=== PATIENT | female | born 1965 | race Asian ===

== ENCOUNTER 2025-08-31 20:12 | Emergency (ER) | payer BC, SELFPAY ==
[2025-08-31 20:16] VITALS: BP 160/95
[2025-08-31 21:13] VITALS: BMI 28.4
[2025-08-31] MEDS: TORADOL 15 MG IV (21:17)
[2025-08-31 21:18] VITALS: BP 149/95
--- NOTE | 2025-08-31 21:19 | ED.GENMED ---
History of Present Illness
General
Chief Complaint: Blood Pressure Problem
Time Seen by Provider: 08/31/25 20:31
History of Present Illness
History of Present Illness:
59-year-old female with past medical history of seizures, not on seizure medications, presenting to the emergency department for concern of high blood pressure. Patient reports that she fell asleep around 1 PM and then at 5 PM when she woke up she
felt unwell. Noted headache and tingling to her hands. She checked her sugar because she is prediabetic it was 120. She then checked her blood pressure which was 140/95, which concerned her because her pressure usually runs lower. Also notes
some chest pressure, denies any known cardiac history. Denies abdominal pain or GI symptoms. Denies fever. Denies additional he medical complaints.
Phy Exam
Physical Exam
Physical Exam:
General: Well-appearing, no clinical signs of dehydration, nontoxic and in no acute distress
HEENT: protecting airway
Neck: appears supple
CV: Normal heart rate, regular rhythm
Resp: No accessory muscle use, no increased work of breathing, lungs clear to auscultation bilaterally
Abd: No distention
Extremities: No deformities, no swelling
Neuro: alert, no focal neurologic deficit
: deferred
Rectal: deferred
Psych: Normal affect
Skin: Intact
Course
Orders/Labs/Results
Orders:
Orders
08/31/25 20:14
ECG [Electrocardiogram (*1)] Urgent
Reason for Study: Chest Pain
Cardiology Consult: Unknown
EKG- Treatment ONCE
08/31/25 21:04
Ketorolac [Toradol] 15 mg IV NOW STA
08/31/25 21:12
Comprehensive Metabolic Panel Urgent
Troponin I Urgent
08/31/25 21:13
Complete Blood Count/With Diff Urgent
08/31/25 22:26
EKG- Treatment ONCE
09/01/25 00:10
Electrocardiogram (*1) Urgent
Reason for Study: Chest Pain
09/01/25 00:12
Troponin I Urgent
Abnormal Lab Results
08/31/25 08/31/25
21:12 21:13
WBC 4.6 L 10^3/uL
(4.8-10.8)
Glucose 103 H mg/dl
(70-99)
ALT 37 H U/L
(0-35)
08/31/25 21:13
08/31/25 21:12
Vital Signs
Initial and Last Documented VS:
Initial Vital Signs
Temp Pulse Resp BP Pulse Ox
97.8 F 90 16 160/95 98
08/31/25 20:16 08/31/25 20:16 08/31/25 20:16 08/31/25 20:16 08/31/25 20:16
Last Documented Vital Signs
Temp Pulse Resp BP Pulse Ox
97.8 F 56 13 119/78 100
08/31/25 20:16 09/01/25 00:15 09/01/25 00:15 09/01/25 00:00 09/01/25 00:15
MDM/Problems Addressed
MDM/Problems Addressed:
59-year-old female with history of seizures presenting for concern of high blood pressure. Vital signs on arrival significant for mild hypertension, however improved without intervention.
On exam patient is resting comfortably, no acute distress. Again blood pressure is minimally elevated. Without present concern for hypertensive urgency or emergency. Notes mild headache, no focal neurologic deficits on exam without concern for
central neurologic process or CVA. EKG obtained on arrival, noted some chest pressure, no acute evidence of ischemia. Without present concern for ACS. Will screen with laboratory analysis to ensure no evidence of end organ dysfunction. Will
continue to monitor blood pressure.
22:30 - Labs are unremarkable. Troponin is detectable, however within normal limits. Given patient's chest pressure, will repeat.
00:50 - Second troponin within normal limits. Blood pressure remained stable. Ultimately feel stable for discharge with close outpatient PCP follow-up for blood pressure recheck. Return precautions discussed and patient verbalized understanding
*Pulse Oximetry
SaO2: 97
Oxygen Mode of Delivery: Room air
Patient hypoxic: no
*EKG
Interpreted by ED Provider?: Yes
EKG Intrepretation Date: 08/31/25
EKG Intrepretation Time: 21:28
Interpretation: normal
Heart Rate: 79
Rate: normal
Rhythm: sinus
[place]: normal axis
Interval: normal interval
QRS Pattern: normal QRS
Ischemia: no ischemia
*Critical Care Note
Total Time (30-74mins, 75-104mins- exclusive of procedures): Not Applicable
ED Attending Note
-
Portions of this chart may have been created with voice recognition software.� Occasional wrong word or��sound alike� substitutions may have occurred due to the inherent limitations of voice recognition software.
Discharge Plan
Departure
Patient Disposition: Home (Routine Discharge)
Date of Disposition: 09/01/25
Time of Disposition: 00:55
Patient with high blood pressure during this ER visit?: Yes
Condition: Good
Discharge Problem:
Hypertension, Chest pain
Instructions: Chest pain (DC), BLOOD PRESSURE
Referrals:
PRIVATE,PHYSICIAN [Family Provider, Internal Medicine]
Alejandra Hammonds, DO [Active, Cardiology]
Activity Restrictions/Additional Instructions:
You were seen in the emergency department for concern of elevated blood pressure
You were found to have slightly elevated blood pressure in the ER, however your blood pressure improved without any medications. You had reassuring laboratory analysis and EKG. We recommend follow-up with your primary care doctor as well as
science professor.
Please follow-up closely with your primary care physician.
Return to the emergency department for any worsening of your symptoms, or any development of chest pain, difficulty breathing, abdominal pain with persistent vomiting and inability to tolerate food or liquid by mouth (concern for dehydration),
weakness, headache or confusion, fever greater than 100.4, or any additional symptoms that are concerning to you.
Thank you for choosing [facility].
Interventions
Interventions:
*Risk Screen - Suicide Last Done: 08/31/25 20:16
*General Assessment Last Done: 08/31/25 20:16
*Neglect/Abuse Screening Last Done: 08/31/25 20:16
*ED- Fall Risk Assessment Last Done: 08/31/25 21:18
*ED COVID-19 Vaccine History Last Done: 08/31/25 21:18
*ED Influenza Vaccine History Last Done: 08/31/25 21:18
ED- Cardiac Assessment Last Done: 08/31/25 22:00
ED- Neurological Assessment Last Done: 08/31/25 22:00
ED- Pulmonary Assessment Last Done: 08/31/25 22:00
Discharge Date and Time
Print Language: CITIZ[place]
[2025-08-31 21:27] LABS: Hematocrit 40.6 % (37.0-47.0); Hemoglobin 14.1 g/dL (12.0-16.0); Mean Corp Hgb Conc. 34.7 g/dL (33.0-37.0); Mean Corpuscular Volume 88.1 fL (81.0-99.0); Nucleated Red Blood Cells % 0 %; Platelet Count 196 10^3/uL (130-400); Red Cell Dist. Width 12.3 % (11.5-14.5)
[2025-08-31 21:41] LABS: ALT (SGPT) 37 U/L (0-35); AST (SGOT) 31 U/L (14-36); Albumin 4.6 g/dl (3.5-5.0); Alkaline Phosphatase 54 U/L (38-126); Blood Urea Nitrogen 17 mg/dl (7-17); Calcium 9.1 mg/dl (8.4-10.2); Carbon Dioxide 27 mmol/L (22-30); Chloride 104 mmol/L (98-107); Estimated Creatinine Clearance 72 ml/min; Glucose 103 mg/dl (70-99); Potassium 3.8 mmol/L (3.5-5.1); Sodium 138 mmol/L (135-145); Total Protein 7.1 g/dl (6.3-8.2); eGFR > 60.00
[2025-08-31 21:54] LABS: Troponin I 0.016 ng/ml
[2025-08-31 22:00] VITALS: BP 122/77
[2025-08-31 23:00] VITALS: BP 112/78
[2025-09-01] VITALS: BP 119/78
[2025-09-01 00:50] LABS: Troponin I < 0.012 ng/ml
[2025-09-01 01:00] VITALS: BP 144/91
== END 2025-09-01 01:15 | disposition home or self-care (01) ==
LOC: EMR 20:12
PROVIDERS: EMERGENCY PHYSICIAN Student in an Organized Health Care Education/Training Program
DX: I10 Essential (primary) hypertension (principal); R07.9 Chest pain, unspecified; R73.03 Prediabetes
CPT/HCPCS: 99284; 96374; 80053; 84484; 85025; 93005